=== PATIENT | male | born 1965 | race Caucasian/White ===

== ENCOUNTER 2021-05-11 03:36 | Inpatient (IN) | payer OTHER, SELFPAY ==
[2021-05-11] VITALS (9 sets, daily range): BP systolic 148–192; BP diastolic 72–98; PULSE 78–92; RESP 12–20; TEMP 36.7–38.1; O2SAT 92–99; BMI 36.1
--- NOTE | ~2021-05-11 | CT_ITS ---
EXAMINATION: CT abdomen pelvis w con DATE: 05/11/2021 04:53 INDICATION: Abdominal pain TECHNIQUE: Computed tomography (CT) of the abdomen and pelvis was performed with 100 mL Omnipaque-350 intravenous contrast. Automated exposure control and iterative reconstruction technique were employe d. The dose-length product was 1452.11 mGy-cm. COMPARISON: None FINDINGS: Mild streaky atelectasis at the bilateral lung bases. Heart size is normal. No pericardial or pleural effusion. Diffuse hepatic steatosis with focal sparing along the gallbladder fossa. A few scattered splenic calcifications consistent with old granulomatous disease. Gallbladder, pancreas, bilateral ki dneys and right adrenal gland are normal. 6-7 mm left adrenal nodule statistically most likely to rep resent an adenoma. Normal appendix. There is fluid throughout multiple loops of mildly dilated proxim al small bowel which measure up to 4.1 cm in maximal anterior. There is no single transition point wi th the bowel intermittently tapering with intervening fluid filled segments transition to normal stacie pavel and then eventually reaching decompressed small bowel distally. The pattern favors ileus or enter itis over obstruction. There is mild colonic diverticulosis with a sigmoid and descending colon predo minance. There is no adjacent inflammatory change to suggest diverticulitis. Bladder is normal. No a bscess or free intraperitoneal gas. Trace amount of free fluid in the deep pelvis and bilateral parac olic gutters. No pathologically enlarged abdominal or pelvic lymphadenopathy. Severe spondylosis at L 5-S1. Otherwise minimal to mild spondylosis in the more cephalad lumbar and lower thoracic spine. Mil d bilateral hip osteoarthritis. IMPRESSION: 1. Multiple segments of mildly dilated fluid-filled small bowel with no single transition point to jacob ggest obstruction and would favor enteritis or ileus. 2. Diffuse hepatic steatosis. 3. Mild diverticulosis. Reviewed, dictated and finalized at location [facility] IMPRESSION: 1. Multiple segments of mildly dilated fluid-filled small bowel with no single transition point to suggest obstruction and would favor enteritis or ileus. 2. Diffuse hepatic steatosis. 3. Mild diverticulosis.
[2021-05-11] MEDS: MORPHINE SULFATE (*CRX) 4 MG/ML INJ IV PUSH (04:12)
[2021-05-11] MEDS: SODIUM CHLORIDE 0.9% IV 1,000 ML 999 ML IV CONT (04:12)
--- NOTE | 2021-05-11 04:12 | ED.GENADULT ---
HPI - General Adult General Chief complaint: Nausea/Vomiting/Diarrhea Stated complaint: vomiting Time Seen by Provider: 05/11/21 03:51 History of Present Illness HPI narrative: Patient 56-year-old gentleman who presents the emergency department with chief complaint of abdominal pain nausea vomiting diarrhea. The patient states about 4 days ago he went out had a couple drinks with family member and then felt very hung over the patient states he then started having significant amounts of diarrhea reports it was not improved by anything reports he attempts to eat but then will have A cramping sensation throughout his abdomen. The patient states then he started having a low-grade fever and then subsequently has developed nausea and vomiting patient reports has been unable to keep any fluids down reports that he has had multiple bouts of loose stool noticed there was a little bit of like a blood tinge in some of the vomit recently. Related Data Allergies Allergy/AdvReac Type Severity Reaction Status Date / Time No Known Allergies Allergy Verified 05/11/21 03:51 Review of Systems Review of Systems: A 10 system review of systems was completed on the patient and is negative except for what is stated in the HPI. Nursing and ancillary documentation was reviewed. Exam Narrative: GENERAL: Well-appearing, well-nourished, and in no acute distress. HEAD: Normocephalic, atraumatic. EYES: PERRLA and EOMI. ENT: Nares clear, no rhinorrhea or epistaxis. Mucous membranes moist. NECK: Supple. CHEST: Clear to auscultation. No respiratory distress. HEART: Regular rate and rhythm. No murmur heard. Normal peripheral pulses. ABDOMEN: Soft, distended diffusely tender to palpation, normal active bowel sounds. EXTREMITIES: Normal range of motion. No edema. SKIN: Warm, dry, no rash. NEURO: No focal deficits. Alert and oriented x3. PSYCH: Normal mood and affect. Course Vital Signs Vital signs: Vital Signs Temperature 37.0 C 05/11/21 03:53 Pulse Rate 92 05/11/21 03:53 Respiratory Rate 20 05/11/21 03:53 Blood Pressure 181/98 H 05/11/21 03:53 Pulse Oximetry 99 05/11/21 03:53 Temperature 37.0 C 05/11/21 03:53 Pulse Rate 84 05/11/21 06:11 Respiratory Rate 17 05/11/21 06:11 Blood Pressure 165/88 H 05/11/21 06:11 Pulse Oximetry 97 05/11/21 06:11 Medical Decision Making Vital Signs Vital Signs: Vital Signs Temperature 37.0 C 05/11/21 03:53 Pulse Rate 92 05/11/21 03:53 Respiratory Rate 20 05/11/21 03:53 Blood Pressure 181/98 H 05/11/21 03:53 Pulse Oximetry 99 05/11/21 03:53 Temperature 37.0 C 05/11/21 03:53 Pulse Rate 84 05/11/21 06:11 Respiratory Rate 17 05/11/21 06:11 Blood Pressure 165/88 H 05/11/21 06:11 Pulse Oximetry 97 05/11/21 06:11 Lab Data Result diagrams: 05/11/21 04:22 05/11/21 04:22 Labs: Lab Results 05/11/21 05/11/21 05/11/21 Range/Units 04:22 04:22 05:27 WBC 3.3 L (4.5-10.0) K/mm3 RBC 5.48 (4.6-6.20) M/mm3 Hgb 17.0 (14.0-18.0) g/dL Hct 48.2 (42.0-52.0) % MCV 88.0 (80-100) fl MCH 31.0 (26-34) pg MCHC 35.3 (32-36) g/dl RDW 12.1 (11.5-14.5) % Plt Count 199 (150-375) k/mm3 MPV 9.3 (7.4-10.4) fl Immature Gran % (Auto) 0.0 (0-0.5) % Neut % (Auto) 48.6 (45.5-73.1) % Lymph % (Auto) 22.2 (18.3-44.2) % [place] % (Auto) 27.1 H (2.6-8.5) % Eos % (Auto) 1.2 (0-4.4) % Baso % (Auto) 0.9 (0.2-1.2) % Lymph # (Auto) 0.73 L (0.9-3.2) K/mm3 [place] # (Auto) 0.9 H (0.1-0.6) K/mm3 Eos # (Auto) 0.0 (0-0.3) K/mm3 Baso # (Auto) 0.0 (0.0-0.1) K/mm3 Abs Immat Gran (auto) 0.00 (0.00-0.031) K/mm3 Absolute Neuts (auto) 1.6 (1.3-6.7) K/mm3 Absolute Nucleated RBC 0.0 (0.0-0.012) K/mm3 Nucleated RBC % 0.0 (0.0-0.2) % Sodium 138 (137-145) mmol/L Potassium 3.5 (3.4-5.0) mmol/L Chloride 99 (98-107) mmol/L Carbon Dioxide
[2021-05-11] MEDS: diphenhydrAMINE HCl INJ 50 MG/ML VIAL IV PUSH (04:13)
[2021-05-11] MEDS: PROCHLORPERAZINE EDISYLATE 10 MG/2 ML VIAL IV PUSH (04:13)
[2021-05-11 04:29] LABS: Basophils Percent Auto 0.9 % (0.2-1.2); Eosinophils Percent Auto 1.2 % (0-4.4); Hematocrit 48.2 % (42.0-52.0); Lymphocytes Absolute Auto 0.73 K/mm3 (0.9-3.2); Lymphocytes Percent Auto 22.2 % (18.3-44.2); Mean Corpuscular HGB Conc 35.3 g/dl (32-36); Mean Platelet Volume 9.3 fl (7.4-10.4); Monocytes Absolute Auto 0.9 K/mm3 (0.1-0.6); Monocytes Percent Auto 27.1 % (2.6-8.5); Neutrophils Absolute Auto 1.6 K/mm3 (1.3-6.7); Neutrophils Percent Auto 48.6 % (45.5-73.1); Platelet Count Result 199 k/mm3 (150-375); Red Blood Count 5.48 M/mm3 (4.6-6.20); Red Cell Distribution Width 12.1 % (11.5-14.5); White Blood Count 3.3 K/mm3 (4.5-10.0)
[2021-05-11 04:39] LABS: Alanine Aminotransferase 48 U/L (4-50); Albumin Level 4.5 g/dL (3.5-5.1); Alkaline Phosphatase 72 U/L (38-126); Anion Gap 12 mmol/L (8-16); Aspartate Amino Transferase 30 U/L (17-59); Bilirubin,Total 0.9 mg/dL (0.2-1.3); Blood Urea Nitrogen 21 mg/dL (9-20); Calcium 9.2 mg/dL (8.4-10.2); Carbon Dioxide 27 mmol/L (22-30); Chloride 99 mmol/L (98-107); Estimated CRCL calculation 110 ml/min; Estimated Glomerular Filt Rate > 60; Glucose 177 mg/dL (65-110); Lipase 11 U/L (23-300); Potassium 3.5 mmol/L (3.4-5.0); Sodium 138 mmol/L (137-145)
--- NOTE | 2021-05-11 04:41 | PC.NURSE ---
pt tried to give urine sample, but was unable to void. pt declining straight catheter at this time.
[2021-05-11 06:59] LABS: Add Urine Microscopic? YES; Appearance Urine Clear (Clear); Bilirubin Urine Negative (Negative); Blood Urine Negative (Negative); Color Urine Yellow (Yellow); Glucose Urine UA Negative (Negative); Ketones Urine Negative (Negative); Leukocyte Esterase Ur Negative LEU/UL (Negative); Nitrate Urine Negative (Negative); Protein Urine 1+ mg/dL (Negative); Urobilinogen Urine Negative mg/dL (<2.0)
[2021-05-11 07:09] LABS: Squamous Epithelial Cell Urine Few /hpf (Few); WBC Urine 0-3 /hpf (0-3)
[2021-05-11 07:10] LABS: Mucus Urine Moderate /lpf
--- NOTE | 2021-05-11 07:10 | PC.NURSE ---
report from julia holman. waiting admission orders. pt aware of npo status.
--- NOTE | 2021-05-11 08:39 | PC.NURSE ---
hospitalist at bedside
--- NOTE | 2021-05-11 11:35 | ADMGEN ---
This patient, Denzel Anglin, was admitted to [facility] Surg Room 324-01. Patient/family oriented to hospital policies and general routines including ID bracelet, bed and alarms, visiting hours, pain management, procedures, bathroom and other care routines, personal items, smoking policy, room service/diet, and visiting hours. Information on how to activate the Rapid Response Team has been discussed. Patient/Family are encouraged to report perceived risks to care and to ask questions if they do not understand what they are told or what they should do.
--- NOTE | 2021-05-11 11:44 | PM.IMHP ---
H&P: HPI History of Present Illness Date/Time: 05/11/21 11:44 Chief Complaint: Abdominal pain 56 years old male presented to the hospital with abdominal pain generalized started few days ago worsening gradually associated with nausea and vomiting multiple times a day patient was unable to see anything down patient also complains of diarrhea multiple times a day associated with abdominal cramps intermittent fever patient recently had a to a and was treated with antibiotics at the ER CT scan was done concern for enteritis with dilated bowel loops patient was admitted to the hospital for further evaluation and treatment Review of Systems Review of Systems: All systems reviewed & are unremarkable except as noted in HPI and below Meds Home Medications and Allergies Allergies Allergy/AdvReac Type Severity Reaction Status Date / Time No Known Allergies Allergy Verified 05/11/21 03:51 Vital Signs Vital Signs - 24 hr 05/11/21 03:53 05/11/21 04:42 05/11/21 06:11 Temperature 98.6 F Pulse Rate 92 82 84 Respiratory Rate 20 19 17 Blood Pressure 181/98 H 162/94 H 165/88 H Pulse Oximetry 99 95 97 05/11/21 08:01 05/11/21 10:00 05/11/21 11:00 Temperature Pulse Rate 79 78 Respiratory Rate 16 16 Blood Pressure 149/72 H 149/89 H 148/72 H Pulse Oximetry Exam Const: General: uncomfortable HENMT: Mouth: Yes dry mucous membranes Eyes: Sclera: normal sclerae Neck: Neck: supple Resp: Auscultation: clear to auscultation bilaterally Cardio: Rate: regular rate Rhythm: regular rhythm GI: GI Palp: Yes Soft to palpation, No Tenderness to palpation present (GI) and No Guarding due to palpation present (GI) Auscultation: normal bowel sounds Skin: General skin exam: normal color Neuro: Speech: normal speech Extrem: General: normal to inspection Right upper extremity: normal to inspection Left upper extremity: normal to inspection Right lower extremity: normal to inspection Left lower extremity: normal to inspection Psych: Mental Status: mental status grossly normal H&P: Results Labs Labs: Short CBC 05/11/21 Range/Units 04:22 WBC 3.3 L (4.5-10.0) K/mm3 Hgb 17.0 (14.0-18.0) g/dL Hct 48.2 (42.0-52.0) % Plt Count 199 (150-375) k/mm3 BMP 05/11/21 04:22 Sodium 138 Potassium 3.5 Chloride 99 Carbon Dioxide 27 BUN 21 H Creatinine 0.90 Glucose 177 H Calcium 9.2 Liver Function 05/11/21 Range/Units 04:22 Total Bilirubin 0.9 (0.2-1.3) mg/dL AST 30 (17-59) U/L ALT 48 (4-50) U/L Alkaline Phosphatase 72 (38-126) U/L Albumin 4.5 (3.5-5.1) g/dL Urine 05/11/21 Range/Units 05:27 Urine Color Yellow (Yellow) Urine Appearance Clear (Clear) Urine pH 5.0 (5.0-9.0) Ur Specific Wesley 1.010 (1.001-1.035) Urine Protein 1+ H (Negative) mg/dL Urine Glucose (UA) Negative (Negative) mg/dL Assessment and Plan Assessment and plan (1) Gastroenteritis: Code(s): K52.9 - Noninfective gastroenteritis and colitis, unspecified Status: Acute Assessment and Plan: Probable viral gastroenteritis but also patient has history of recent antibiotic use will check C diff monitor closely give IV fluid IV Zofran check stool study (2) Abdominal distension: Code(s): R14.0 - Abdominal distension (gaseous) Status: Acute Assessment and Plan: No evidence of bowel obstruction probable ileus Start clear liquid diet Monitor closely (3) Dehydration: Code(s): E86.0 - Dehydration Status: Acute Assessment and Plan: IV fluid Additional Plan DVT prophylaxis Lovenox no evidence of bleeding
[2021-05-11 12:08] LABS: Magnesium 1.9 mg/dL (1.6-2.3)
[2021-05-11] MEDS: SODIUM CHLORIDE 0.9% IV 1,000 ML 100 ML IV CONT ×2 (12:09→21:35)
--- NOTE | 2021-05-11 15:07 | PM.CNGS ---
Assessment and Plan Assessment and plan (1) Gastroenteritis: Code(s): K52.9 - Noninfective gastroenteritis and colitis, unspecified Status: Acute Assessment and Plan: Exam benign this morning, CT and labs reviewed, consistent with gastroenteritis, no evidence of bowel obstruction, continue IV rehydration, continue clears, advance diet as tolerated History of Present Illness Consult details Consult date: 05/11/21 Reason for consult: abdominal pain Requesting physician: Leslie Lopez MD Narrative: The patient is a 56-year-old male that presented to the emergency department complaining of diffuse, crampy abdominal pain. The patient reports that the pain has been going for the last few days and progressively worsening. The patient reports he has had anorexia, intermittent nausea and vomiting, subjective fevers. The patient reports he has been having diarrhea during this time. The patient denies any sick contacts or previous episodes. Review of Systems Constitutional: Constitutional: Reports as per HPI, Reports anorexia, Reports body ache(s), Reports chills, Reports fatigue, Reports fever(s), Denies headache(s), Reports lethargy, Reports malaise, Denies night sweats, Reports poor appetite, Reports weakness, Denies weight gain and Denies weight loss Eyes: Eyes: Reports no additional eye complaints ENT: Reports system reviewed and no additional complaints, except as documented Cardiovascular: Cardiovascular: Reports no additional cardiovascular complaints Respiratory: Respiratory: Reports no additional respiratory complaints Gastrointestinal: Gastrointestinal: Reports as per HPI, Reports abdominal pain, Reports bloating, Reports change in bowel habits, Reports change in stool character, Reports GI cramping, Reports early satiety, Reports diarrhea, Reports loose stools, Reports nausea, Reports vomiting and Denies hematemesis Genitourinary: Genitourinary: Reports no additional male genitourinary complaints Musculoskeletal: Musculoskeletal: Reports no additional musculoskeletal complaints Integumentary/Breasts: Skin/Breast: Reports system reviewed and no additional complaints, except as docu Neurologic: Reports system reviewed and no additional complaints, except as documented Psychiatric: Psychiatric: Reports no additional psychiatric complaints Endocrine: Endocrine: Reports no additional endocrine complaints Hematologic/Lymphatic: Hematologic/Lymphatic: Reports no additional hematologic/lymphatic complaints Allergic/Immunologic: Allergic/Immunologic: Reports no additional allergic/immunologic complaints [facility] Social History Social History Smoking status: Never smoker Alcohol intake: current Drinks per week: 1 Substance use: never Spiritual care concerns: No Comments PMH - none Surgical history - no abd surgeries FH - no known colorectal cancers, IBD Meds Home Medications and Allergies Allergies Allergy/AdvReac Type Severity Reaction Status Date / Time No Known Allergies Allergy Verified 05/11/21 12:20 Vital Signs Vital Signs - 24 hr 05/11/21 03:53 05/11/21 04:42 05/11/21 06:11 Temperature 37.0 C Pulse Rate 92 82 84 Respiratory Rate 20 19 17 Blood Pressure 181/98 H 162/94 H 165/88 H Pulse Oximetry 99 95 97 05/11/21 08:01 05/11/21 10:00 05/11/21 11:00 Temperature Pulse Rate 79 78 Respiratory Rate 16 16 Blood Pressure 149/72 H 149/89 H 148/72 H Pulse Oximetry 05/11/21 11:36 05/11/21 14:00 Temperature 36.9 C 36.7 C Pulse Rate 83 88 Respiratory Rate 12 14 Blood Pressure 167/84 H 173/95 H Pulse Oximetry 92 95 Exam Const: General: cooperative, comfortable and no acute distress Nutritional Appearance: obese Orientation/consciousness: patient oriented x3 Limitations: no limitations HENMT: Head: normal to inspection, normocephalic and atraumatic Ears: hearing grossly normal bilaterall
[2021-05-11] MEDS: ONDANSETRON INJ 4 MG/2 ML VIAL IV PUSH (16:43)
[2021-05-11] MEDS: hydrALAZINE HCL 20 MG/ML VIAL 10 MG IV PUSH (22:13)
[2021-05-12 00:05] VITALS: BP 167/81; PULSE 84; RESP 16; TEMP 37.2; O2SAT 93
[2021-05-12 05:50] VITALS: BP 149/63; PULSE 81; RESP 18; TEMP 36.7; O2SAT 97
[2021-05-12] MEDS: SODIUM CHLORIDE 0.9% IV 1,000 ML 100 ML IV CONT (07:37)
[2021-05-12 08:03] LABS: Hematocrit 44.1 % (42.0-52.0); Hemoglobin 15.5 g/dL (14.0-18.0); Mean Corpuscular HGB Conc 35.1 g/dl (32-36); Mean Corpuscular Hemoglobin 31.6 pg (26-34); Mean Corpuscular Volume 89.8 fl (80-100); Mean Platelet Volume 8.9 fl (7.4-10.4); Platelet Count Result 195 k/mm3 (150-375); Red Blood Count 4.91 M/mm3 (4.6-6.20); Red Cell Distribution Width 12.2 % (11.5-14.5); White Blood Count 4.9 K/mm3 (4.5-10.0)
[2021-05-12 08:19] LABS: Alanine Aminotransferase 51 U/L (4-50); Albumin Level 3.9 g/dL (3.5-5.1); Alkaline Phosphatase 57 U/L (38-126); Anion Gap 6 mmol/L (8-16); Aspartate Amino Transferase 28 U/L (17-59); Bilirubin,Total 0.8 mg/dL (0.2-1.3); Blood Urea Nitrogen 20 mg/dL (9-20); Calcium 8.6 mg/dL (8.4-10.2); Carbon Dioxide 28 mmol/L (22-30); Chloride 101 mmol/L (98-107); Estimated CRCL calculation 100 ml/min; Estimated Glomerular Filt Rate > 60; Glucose 127 mg/dL (65-110); Potassium 3.4 mmol/L (3.4-5.0); Sodium 135 mmol/L (137-145)
[2021-05-12] MEDS: ENOXAPARIN 40 MG/0.4 ML SYRINGE SUB-Q (08:45)
[2021-05-12 09:24] LABS: Band Neutrophils Percent 15 % (0-6); Eosinophils Absolute Manual 0.19 K/mm3 (0.02-0.5); Eosinophils Percent Manual 4 % (0-4); Lymphocytes Absolute Manual 1.12 K/mm3 (1.1-4.5); Monocytes Absolute Manual 1.32 K/mm3 (0.1-0.90); Monocytes Percent Manual 27 % (3-9); Neutrophils Absolute Manual 2.25 K/mm3 (1.3-6.7); Neutrophils Percent Manual 31 % (46-73); Total Cells Counted 100
[2021-05-12 09:25] LABS: Atypical Lymphocytes Present; Large Platelets Present
[2021-05-12 09:26] LABS: Platelet Estimate Adequate (Adequate)
--- NOTE | 2021-05-12 09:59 | PM.DS ---
DS: Admitting Diagnosis Discharge Date Alert Chest no wheeze crackles Abdomen nontender nondistended CVS S1 + S2 Lower extremity edema 05/12/2021 Admitting Diagnosis abdominal pain DS: Discharge Diagnosis Discharge Diagnosis (1) Gastroenteritis: Code(s): K52.9 - Noninfective gastroenteritis and colitis, unspecified Status: Acute Assessment and Plan: Probable viral gastroenteritis treated with IV hydration Zofran patient condition improved (2) Abdominal distension: Code(s): R14.0 - Abdominal distension (gaseous) Status: Acute Assessment and Plan: No evidence of bowel obstruction probable ileus improved advanced diet as tolerated (3) Dehydration: Code(s): E86.0 - Dehydration Status: Acute Assessment and Plan: treated with IV fluids resolved (4) Elevated blood pressure reading: Code(s): R03.0 - Elevated blood-pressure reading, without diagnosis of hypertension Status: Acute Assessment and Plan: monitor blood sugar twice daily and follow-up with PCP (5) Elevated blood sugar: Code(s): R73.9 - Hyperglycemia, unspecified Status: Acute Assessment and Plan: diet and exercise follow-up with PCP in 1 week DS: Summary Hospital Course Hospital Course: patient presents to the hospital with abdominal pain nausea and vomiting was found to have probable gastroenteritis associated with ileus patient was treated with conservative management IV fluid Zofran patient condition improved patient also was found to have elevated blood pressure and elevated blood sugar patient to follow-up with the PCP for further evaluation and treatment as outpatient for now patient will be discharged on diet and exercise regimen and oral Zofran Time Spent with Patient Time attestation: Total time spent providing and/or coordinating discharge services: Exam Narrative: Alert Chest no wheeze crackles Abdomen nontender nondistended CVS S1 + S2 Lower extremity edema DS: Data Data Completed and Pending Labs on day of discharge: Labs from last 24 hours 05/12/21 05/12/21 05/11/21 07:55 07:55 18:07 WBC 4.9 RBC 4.91 Hgb 15.5 Hct 44.1 MCV 89.8 MCH 31.6 MCHC 35.1 RDW 12.2 Plt Count 195 MPV 8.9 Immature Gran % (Auto) Not Reportable Neut % (Auto) Not Reportable Lymph % (Auto) Not Reportable [place] % (Auto) Not Reportable Eos % (Auto) Not Reportable Baso % (Auto) Not Reportable Lymph # (Auto) Not Reportable [place] # (Auto) Not Reportable Eos # (Auto) Not Reportable Baso # (Auto) Not Reportable Abs Immat Gran (auto) Not Reportable Absolute Neuts (auto) Not Reportable Absolute Nucleated RBC Not Reportable Total Counted 100 Neutrophils % (Manual) 31 L Band Neutrophils % 15 H Lymphocytes % (Manual) 23.0 Monocytes % (Manual) 27 H Eosinophils % (Manual) 4 Nucleated RBC % Not Reportable Abs Neuts (Manual) 2.25 Abs Lymphs (Manual) 1.12 Abs Monocytes (Manual) 1.32 H Absolute Eos (Manual) 0.19 Atypical Lymphocytes Present Platelet Estimate Adequate Large Platelets Present Sodium 135 L Potassium 3.4 Chloride 101 Carbon Dioxide 28 Anion Gap 6 L BUN 20 Creatinine 1.00 Estim Creat Clear Calc 100 Estimated GFR > 60 Glucose 127 H Calcium 8.6 Magnesium Total Bilirubin 0.8 AST 28 ALT 51 H Alkaline Phosphatase 57 Total Protein 6.0 L Albumin 3.9 Stool Lactoferrin Stool Rotavirus Antigen Pending Stool Norovirus (PCR) 05/11/21 05/11/21 18:07 04:22 WBC RBC Hgb Hct MCV MCH MCHC RDW Plt Count MPV Immature Gran % (Auto) Neut % (Auto) Lymph % (Auto) [place] % (Auto) Eos % (Auto) Baso % (Auto) Lymph # (Auto) [place] # (Auto) Eos # (Auto) Baso # (Auto) Abs Immat Gran (auto) Absolute Neuts (auto) Absolute Nucleated RBC Total Cou
--- NOTE | 2021-05-12 11:03 | PC.NURSE ---
On 05/12/21, the student, Sasha Christy, provided care and completed [facility] documentation on this patient. I have reviewed the student's documentation and agree with the findings.
[2021-05-14 20:02] LABS: Rotavirus Stool Not Detected
== END 2021-05-12 11:18 | disposition home or self-care (01) | DRG 392 ==
LOC: ANHED 06:46 → ANH3MEDSUR 09:47
PROVIDERS: Admitting Provider Internal Medicine; Emergency Provider Emergency Medicine; PCP Family Medicine Sports Medicine; Visit Provider Internal Medicine
DX: A08.4 Viral intestinal infection, unspecified (principal); K56.7 Ileus, unspecified; E86.0 Dehydration; R03.0 Elevated blood-pressure reading, without diagnosis of hypertension; R73.9 Hyperglycemia, unspecified
CPT/HCPCS: 36415; 74177; 80053; 81001; 83630; 83690; 83735; 85025; 87324; 87425; 87798; 96361; 96374; 96375; 99285; G0378; J0360; J0780; J1200; J1650; J2270; J2405; J7030; Q9967